=== PATIENT | female | born 1955 | race Caucasian/White ===

== ENCOUNTER → 2017-08-06 17:25 | Outpatient (CLI) | payer BC ==
[2009-04-01 09:49] VITALS: BMI 44.2
[~2017-08-06 17:25] MED LIST: ARMOUR THYROID120 MG PO; DITROPAN X5 MG/BOTTL PO; EFFEXOR XR150 MG PO; ELIQUIS2.5 MG PO; GABAPENTIN100 MG PO; GLUCOPHAGE500 MG; HYDROCHLOROTHIA25 MG PO; LISINOPRIL10 MG PO; MOBIC7.5 MG PO; PERCOCET 10/3251 TA1 PO; PROMETRIUM200 MG PO; PROTONIX40 MG PO; ULTRAM50 MG PO; VICTOZA0.6 MG/0.1; VITAMIN D31000 UNI2 PO; VIVELLE-DO1 PATCH.B1 TD; ZYRTEC10 MG PO
[2017-09-02 16:46] VITALS: BMI 42.1
== END | disposition home or self-care (01) ==
LOC: D.LABREF 17:25
DX: M17.11 Unilateral primary osteoarthritis, right knee (principal); Z11.8 Encounter for screening for other infectious and parasitic diseases

== ENCOUNTER 2017-09-02 10:45 | Inpatient (IN) | payer BC ==
[2017-08-29 12:03] LABS: BASOPHILS 0.4 % (0-2); EOSINOPHILS 5.3 % (0-7); HEMATOCRIT 36.1 % (36.0-48.0); IMMATURE GRANULOCYTES 0.2 % (0-5); LYMPHOCYTES 29.5 % (15-50); MCH 28.2 pg (26.0-34.0); MCHC 33.2 g/dL (31.0-37.0); MCV 84.9 fL (80.0-100.0); MEAN PLATELET VOLUME 9.7 fL (7.4-10.4); MONOCYTES 5.6 % (2-11); PLATELET COUNT 286 10x3/uL (130-400); RBC 4.25 10x6/uL (4.00-5.40); RDW 12.8 % (11.5-14.5); WBC 8.9 10x3/uL (4.8-10.8)
[2017-08-29 12:16] LABS: APPEARANCE CLEAR (CLEAR); BILIRUBIN NEGATIVE (NEGATIVE); COLOR YELLOW (YELLOW); GLUCOSE NEGATIVE (NEGATIVE); KETONE NEGATIVE (NEGATIVE); NITRITE NEGATIVE (NEGATIVE); SPECIFIC GRAVITY 1.015 (1.005-1.020); UROBILINOGEN NORMAL (NORMAL)
[2017-08-29 12:17] LABS: APTT 25.8 SECONDS (22.8-39.4); INR 0.93 (0.85-1.17)
[2017-08-29 12:18] LABS: RED CELLS - URINE NONE SEEN /hpf (0-5); WHITE CELLS - URINE 0-5 /hpf (0-5)
[2017-08-29 12:21] LABS: BACTERIA MODERATE /hpf (NONE SEEN)
[2017-08-29 12:29] LABS: PROTEIN NEGATIVE (NEGATIVE)
[2017-08-29 12:36] LABS: ANION GAP 14.5 mmol/L (8-16); CALCIUM 9.9 mg/dL (8.5-10.1); CARBON DIOXIDE 26.6 mmol/L (21.0-32.0); CREATININE - SERUM 1.3 mg/dL (0.6-1.3); POTASSIUM - SERUM 4.1 mmol/L (3.5-5.1)
[~2017-09-02] VITALS: Ht 157.5 cm; Wt 104.5 kg
--- NOTE | ~2017-09-02 | OP ---
PATIENT NAME: ORACIO NUÑEZ MEDICAL RECORD: [id number] :53 LOCATION:[facility]- ADMISSION DATE:09/02/17 SURGEON: SHAWN DOWELL MD DATE OF OPERATION: 09/02/2017 PREOPERATIVE DIAGNOSIS: Severe degenerative arthritis of the right knee. POSTOPERATIVE DIAGNOSIS: Severe degenerative arthritis of the right knee. PROCEDURE: Right total knee arthroplasty. SURGEON: Shawn Dowell MD ANESTHESIA: General. INTRAOPERATIVE COMPLICATIONS: None. SUMMARY OF PATHOLOGIC FINDINGS: The patient had severe degenerative arthritis of the right knee consistent with preoperative radiographs and diagnosis. I detailed multiple different avenues of nonoperative management. IMPLANTS USED: [employer] Triathlon total knee arthroplasty system, size 4 distal femur, size 4 tibial baseplate, size 9-mm x 31 X3 symmetric patella, 11-mm x 4 tibial bearing insert - X3. ESTIMATED BLOOD LOSS: 150 cc. OPERATIVE SUMMARY IN DETAIL: After obtaining the appropriate preoperative orthopaedic surgery consent as well as anesthetic consultation, evaluation, and clearance, the patient was brought to the operating room and placed on the operating table in the supine position. After general laryngeal mask airway was administered, tourniquet was placed about the proximal aspect of the right lower extremity. The right lower extremity was then prepped and draped in routine sterile fashion. The leg was elevated, exsanguinated, and tourniquet was inflated to 350 mmHg. Routine midline incision was taken down for paramedian arthrotomy. Paramedian arthrotomy was performed. Patella was everted. Distal femur was exposed. Soft tissue excision was done in usual fashion. Distal intramedullary guide hole was created for intramedullary guided distal femoral cuts. Having completed the distal femoral cuts, attention was turned to the proximal tibia with complete exposure of the proximal tibia. Intramedullary guide hole was created here likewise. This was utilized to cut the appropriate amount of the proximal tibia. Appropriate measurements were taken. Distal chamfer cuts were made on the distal femur. Trial implants corresponding to the above were put into place, taken through range of motion, was found to be stable in all planes. Final distal femoral and proximal tibial preparations were made for implantation. The patella was then cut for 9-mm resection, for 9 x 31 symmetric patella. The final preparations for the patella were made. At this point, the knee was irrigated with a pulsatile lavage syringe and all loose debris was removed. The knee was then flexed. Bone ends were dried. Proximal tibia was put into place and cemented. All excess cement was removed. Polyethylene tray was then put into place. This was followed by placement of the distal femoral component. Again, all excess cement was removed. The knee was placed in extension. The polyethylene patella was then likewise cemented onto the undersurface of the patella. Excess cement was removed here as well. After cement was allowed to harden, the knee was taken through range of motion OPERATIVE REPORT [id number] ORACIO NUÑEZ and found to be stable in all planes. Paramedian arthrotomy was closed with #2 Ethibond. This was followed by #1 Vicryl, 2-0 Vicryl, and skin chance. Sterile dressings were applied. Tourniquet was deflated. The patient was awakened and taken to recovery room in stable condition. All final needle and sponge counts were correct. TRANSINT:[id number] Voice Confirmation ID: [id number] DOCUMENT ID: [id number] MAGALYS BRIGHT, SHAWN FRANCOIS at 1547 CC: [id number] DICTATION DATE: 09/02/17 1352 FIRE BOSS: 09/02/17 1446 ADM IN [facility] [address] [place] [address]
[~2017-09-02 10:45] MED LIST changes: -ELIQUIS2.5 MG PO; -PERCOCET 10/3251 TA1 PO; -ZYRTEC10 MG PO
[2017-09-02] MEDS ORDERED: ZYRTEC10 MG PO (11:10)
[2017-09-02 11:12] VITALS: BP 159/80; BMI 44.4
[2017-09-02 16:46] VITALS: BP 109/63; Ht 157.5 cm; Wt 104.5 kg
[2017-09-02 20:37] VITALS: BP 125/63
[2017-09-03 00:41] VITALS: BP 145/71
[2017-09-03 04:10] VITALS: BP 116/61
[2017-09-03 06:34] LABS: HEMATOCRIT 28.6 % (36.0-48.0); HEMOGLOBIN 9.6 g/dL (12-16); MCH 28.2 pg (26.0-34.0); MCHC 33.6 g/dL (31.0-37.0); MCV 84.1 fL (80.0-100.0); MEAN PLATELET VOLUME 9.8 fL (7.4-10.4); RBC 3.4 10x6/uL (4.00-5.40); RDW 12.9 % (11.5-14.5); WBC 9.9 10x3/uL (4.8-10.8)
[2017-09-03 08:08] VITALS: BP 128/67
[2017-09-03 11:49] VITALS: BP 141/45
[2017-09-03 15:15] VITALS: BP 160/68
[2017-09-03 23:12] VITALS: BP 172/74
[2017-09-04 05:25] LABS: HEMATOCRIT 28.4 % (36.0-48.0); HEMOGLOBIN 9.4 g/dL (12-16); MCH 27.7 pg (26.0-34.0); MCHC 33.1 g/dL (31.0-37.0); MCV 83.8 fL (80.0-100.0); MEAN PLATELET VOLUME 9.6 fL (7.4-10.4); RBC 3.39 10x6/uL (4.00-5.40); RDW 12.8 % (11.5-14.5); WBC 9.2 10x3/uL (4.8-10.8)
[2017-09-04 07:46] VITALS: BP 157/61
[2017-09-04 11:38] VITALS: BP 170/57
[2017-09-04 15:43] VITALS: BP 173/75
[2017-09-04 20:00] VITALS: BP 142/70
[2017-09-05 04:00] VITALS: BP 159/80
[2017-09-05 08:42] VITALS: BP 133/81
[2017-09-05 11:09] VITALS: BP 144/66
[2017-09-05 15:54] VITALS: BP 125/62
[2017-09-05] MEDS ORDERED: PERCOCET 10/3251 TA1 PO (16:28)
[2017-09-05] MEDS ORDERED: ELIQUIS2.5 MG PO (16:29)
== END 2017-09-05 18:28 | disposition home or self-care (01) | DRG 470 ==
LOC: D.SDCHOLD 10:45 → D.MS 10:50 → D.SDCHOLD 10:50 → D.MS 16:17
PROVIDERS: Orthopaedic Surgery
PROC: 0SRC0J9 Replacement of Right Knee Joint with Synthetic Substitute, Cemented, Open Approach (ICD-10-PCS; principal; 2017-09-02 13:00)
DX: M17.11 Unilateral primary osteoarthritis, right knee (principal); I10 Essential (primary) hypertension; E11.9 Type 2 diabetes mellitus without complications; Z79.84 Long term (current) use of oral hypoglycemic drugs

== ENCOUNTER → 2017-11-01 22:21 | Outpatient (CLI) | payer BC ==
[2017-09-02 16:46] VITALS: BMI 42.1
[~2017-11-01 22:21] MED LIST changes: +ELIQUIS2.5 MG PO; +PERCOCET 10/3251 TA1 PO; +ZYRTEC10 MG PO
== END | disposition home or self-care (01) ==
LOC: D.MAMMO 13:00
DX: Z12.31 Encounter for screening mammogram for malignant neoplasm of breast (principal)

== ENCOUNTER → 2017-11-29 14:51 | Outpatient (CLI) | payer BC ==
[2017-09-02 16:46] VITALS: BMI 42.1
[~2017-11-29 14:51] MED LIST changes: +OXYCODONE-APAP1 TAB PO
== END | disposition home or self-care (01) ==
LOC: D.LABREF 14:51
DX: M17.12 Unilateral primary osteoarthritis, left knee (principal); Z11.8 Encounter for screening for other infectious and parasitic diseases

== ENCOUNTER 2017-12-19 09:06 | Inpatient (IN) | payer BC ==
[~2017-12-19] VITALS: Ht 157.5 cm; Wt 106.4 kg
--- NOTE | ~2017-12-19 | MORECARE ---
CASE MANAGEMENT DISCHARGE SUMMARY PATIENT: ORACIO NUÑEZ UNIT: [id number] ADM DATE: 12/23/17 AGE: 62 : 54 SEX: F ROOM/BED: D.2210 AUTHOR: HARLEYDOC PHYSICIAN: REFERRING PHYSICIAN: SHAWN DOWELL MD DATE OF SERVICE: 12/25/17 Discharge Plan Patient Name: ORACIO NUÑEZ Facility: [facility]:[place] : 1955 Planned Disposition: Home Anticipated Discharge Date: Discharge Date: Expected LOS: Initial Reviewer: [email or web address] Initial Review Date: 12/23/2017 Generated: 12/25/17 2:48 pm Comments DCP- Discharge Planning Updated by [email or web address]: Jocelin Ybarra on 12/25/17 12:[address] spoke with Avinash at family medicine and patient's appointment for PT will be SaturdayDec 30 at 10:30am will fax clinical to her office DCP- Discharge Planning Updated by [email or web address]: Jocelin Ybarra on 12/25/17 11:[address] Patient Name: ORACIO NUÑEZ Admission Status: Elective Accout number: [id number] Admission Date: 12-23-2017 : 1955 Admission Diagnosis: Attending: SHAWN DOWELL Current LOS: 2 Anticipated DC Date: Planned Disposition: Home Primary Insurance[place] [employer] [facility] Planning Comments: CM met with patient to assess discharge planning needs. Patient lives at home where she is independent. Her adult granddaughter lives with her and will be her transportation to and from PT & her driver trainer home. She has a bedside commode and a walker, but will need a CPM at discharge. I will call Denny at [place] [phone] for delivery. Patient [facility] with Estevan [facility]. CM will set up her first appointment. The patient has 1 step to enter in her home. Coat Agent: Jocelin Ybarra DCPIA - Discharge Planning Initial Assessment Updated by [email or web address]: Jocelin Ybarra on 12/25/17 12:00 pm * Is the patient Alert and Oriented? Yes * How many steps to enter\exit or inside your home? * PCP [facility] * Pharmacy [facility] * Preadmission Environment Home with Family * ADLs Independent * Equipment Bedside Commode Rolling Walker Walker * Other Equipment WILL NEED A CPM * List name and contact numbers for known caregivers / representatives who currently or will assist patient after discharge: ILYA NUÑEZ ([phone]) * Verbal permission to speak to the caregivers and representatives has been obtained from the patient. N/A * Community resources currently utilized None * Additional services required to return to the preadmission environment? Yes * Can the patient safely return to the preadmission environment? Yes * Has this patient been hospitalized within the prior 30 days at any hospital? No Last DP export: 12/25/17 11:07 Patient Name: ORACIO NUÑEZ Page 99992 at 1348 All edits/amendments must be made on the electronic document DICTATION DATE: 12/25/171347 SKULL CHOPPER: SIRENA 12/25/17 1348 RPT#: [id number] DC DATE: STATUS: ADM IN [facility] [address] [place] [address] END OF REPORT
--- NOTE | ~2017-12-19 | OP ---
PATIENT NAME: ORACIO NUÑEZ MEDICAL RECORD: [id number] :53 LOCATION:[facility] ADMISSION DATE:12/23/17 SURGEON: SHAWN DOWELL MD DATE OF OPERATION: 12/23/2017 PREOPERATIVE DIAGNOSIS: Degenerative arthritis of the left knee. POSTOPERATIVE DIAGNOSIS: Degenerative arthritis of the left knee. PROCEDURE: Left total knee arthroplasty. SURGEON: Shawn Dowell MD ANESTHESIA: General. INTRAOPERATIVE COMPLICATIONS: None. SUMMARY OF PATHOLOGIC FINDINGS: The patient had extensive tricompartmental osteoarthritis consistent with preoperative radiographs and diagnosis. IMPLANTS USED: [employer] Triathlon total knee arthroplasty press fit femur and tibia, size 4 femur, size 13 polyethylene insert, size 3 tibial baseplate, and a size 31 press fit patella. OPERATIVE SUMMARY IN DETAIL: After obtaining the appropriate preoperative orthopedic surgery consent as well as anesthetic consultation, evaluation, and clearance, the patient was brought to the operating room and placed on the operating table in the supine position. After general laryngeal mask was administered, tourniquet was placed about the proximal aspect of the left lower extremity. The left lower extremity was then prepped and draped in routine sterile fashion. The leg was elevated, exsanguinated, and the tourniquet was inflated to 350 mmHg. Midline incision was carried down for paramedian arthrotomy. Distal femur was exposed. Soft tissue excision was done in the usual fashion. An intramedullary guide hole was created for distal intramedullary guided femoral cut. This was then followed by complete exposure of the proximal tibia. Tibial intramedullary guided cut was made. Appropriate measurements were taken and the distal femoral chamfer cuts were made. Trials were then put in place corresponding to the above-mentioned implants, taken through range of motion, and found to be stable in all planes. Final distal femoral and proximal tibial preparation was then followed by resection of the arthritic patella. Final patellar components were made. After all trial components were taken through range of motion, these were removed. Copious irrigation was then followed by placement of the press-fit components with good fit, fill, and good stability in all planes to include flexion, extension, and mid flexion. Patellar tracking was excellent. The knee was gently irrigated with dilute Betadine solution followed by administration of a gram of vancomycin, a gram of tobramycin, and a gram of TXA into the knee. Paramedian arthrotomy was closed with #2 Ethibond followed by #1 Vicryl, 2-0 Vicryl, and skin chance. Sterile dressings were applied. The patient was awakened and taken to recovery room in stable condition. All final needle and sponge counts were correct. TRANSINT:[id number] Voice Confirmation ID: [id number] DOCUMENT ID: [id number] OPERATIVE REPORT [id number] ORACIO NUÑEZ MD, SHAWN FRANCOIS CC: [id number] DICTATION DATE: 12/24/171708 PLASTIC PANEL INSTALLER: 12/24/171855 DIS IN 12/26/17 [place] [id number] [place] [id number]
--- NOTE | ~2017-12-19 | MORECARE ---
CASE MANAGEMENT DISCHARGE SUMMARY PATIENT: ORACIO NUÑEZ UNIT: [id number] ADM DATE: 12/23/17 AGE: 62 : 53 SEX: F ROOM/BED: D.2210 AUTHOR: JEAN-PAUL SOUZA PHYSICIAN: REFERRING PHYSICIAN: SHAWN DOWELL MD DATE OF SERVICE: 12/25/17 Discharge Plan Patient Name: ORACIO NUÑEZ Facility: [facility]:[place] : 1955 Planned Disposition: Home Anticipated Discharge Date: Discharge Date: Expected LOS: Initial Reviewer: [email or web address] Initial Review Date: 12/23/2017 Generated: 12/25/17 12:59 pm Patient Name: ROACIO NUÑEZ Page 74074 at 1159 All edits/amendments must be made on the electronic document DICTATION DATE: 12/25/17 1159 WAREHOUSE GUARD: SIRENA 12/25/17 1159 RPT#: [id number] DC DATE: STATUS: ADM IN [facility] [address] [place] [address] END OF REPORT
--- NOTE | ~2017-12-19 | MORECARE ---
CASE MANAGEMENT DISCHARGE SUMMARY PATIENT: ORACIO NUÑEZ UNIT: [id number] ADM DATE: 12/23/17 AGE: 62 : 53 SEX: F ROOM/BED: D.2210 AUTHOR: HARLEYDOC PHYSICIAN: REFERRING PHYSICIAN: SHAWN DOWELL MD DATE OF SERVICE: 12/25/17 Discharge Plan Patient Name: ORACIO NUÑEZ Facility: [facility]:[place] : 1955 Planned Disposition: Home Anticipated Discharge Date: Discharge Date: Expected LOS: Initial Reviewer: [email or web address] Initial Review Date: 12/23/2017 Generated: 12/25/17 1:07 pm Comments DCP- Discharge Planning Updated by [email or web address]: Jocelin Ybarra on 12/25/17 11:[address] Patient Name: ORACIO NUÑEZ Admission Status: Elective Accout number: [id number] Admission Date: 12-23-2017 : 1955 Admission Diagnosis: Attending: SHAWN DOWELL Current LOS: 2 Anticipated DC Date: Planned Disposition: Home Primary Insurance: [employer] Discharge Planning Comments: CM met with patient to assess discharge planning needs. Patient lives at home where she is independent. Her adult granddaughter lives with her and will be her transportation to and from & her transit mixer driver home. She has a bedside commode and a walker, but will need a CPM at discharge. I will call Denny at [place] [phone] for delivery. Patient would like to [facility] with Estevan [facility]. CM will set up her first appointment. The patient has 1 step to enter in her home. Rigger Helper: Jocelin Ybarra DCPIA - Discharge Planning Initial Assessment Updated by [email or web address]: Jocelin Ybarra on 12/25/17 12:00 pm * Is the patient Alert and Oriented? Yes * How many steps to enter\exit or inside your home? * PCP [facility] * Pharmacy [facility] * Preadmission Environment Home with Family * ADLs Independent * Equipment Bedside Commode Rolling Walker Walker * Other Equipment WILL NEED A CPM * List name and contact numbers for known caregivers / representatives who currently or will assist patient after discharge: ILYA NUÑEZ ([phone]) * Verbal permission to speak to the caregivers and representatives has been obtained from the patient. N/A * Community resources currently utilized None * Additional services required to return to the preadmission environment? Yes * Can the patient safely return to the preadmission environment? Yes * Has this patient been hospitalized within the prior 30 days at any hospital? No Last DP export: 12/25/17 10:59 Patient Name: ORACIO NUÑEZ Page 78081 at 1207 All edits/amendments must be made on the electronic document DICTATION DATE: 12/25/171206 BUILDING ENGINEER: SIRENA 12/25/171206 RPT#: [id number] DC DATE: STATUS: ADM IN [facility] [address] [place] [address] END OF REPORT
--- NOTE | ~2017-12-19 | MORECARE ---
CASE MANAGEMENT DISCHARGE SUMMARY PATIENT: ORACIO NUÑEZ UNIT: [id number] ADM DATE: 12/23/17 AGE: 62 : 53 SEX: F ROOM/BED: D.2210 AUTHOR: HARLEYDOC PHYSICIAN: REFERRING PHYSICIAN: SHAWN DOWELL MD DATE OF SERVICE: 12/26/17 Discharge Plan Patient Name: ORACIO NUÑEZ Facility: [facility]:[place] : 1955 Planned Disposition: Home Anticipated Discharge Date: Discharge Date: Expected LOS: Initial Reviewer: [email or web address] Initial Review Date: 12/23/2017 Generated: 12/26/17 10:52 am Comments DCP- Discharge Planning Updated by [email or web address]: Jocelin Ybarra on 12/26/17 8:[address] Patient Name: ORACIO NUÑEZ Encounter No: [id number] : 1955 Primary Insurance: [employer] [facility] Anticipated DC Date: Planned Disposition: Home External Planned Provider: : DCP follow-up note: Patient and family in agreement with discharge plan. CPM will be delivered to the home, I spoke with Josefina at [facility]. No changes to plan. Case management will follow and assist as needed. Jocelin Ybarra DCP- Discharge Planning Updated by [email or web address]: Jocelin Ybarra on 12/25/17 12:[address] spoke with Avinash at family medicine and patient's appointment for PT will be SaturdayDec 30 at 10:30am will fax clinical to her office DCP- Discharge Planning Updated by [email or web address]: Jocelin Ybarra on 12/25/17 11:[address] Patient Name: ORACIO NUÑEZ Admission Status: Elective Accout number: [id number] Admission Date: 12-23-2017 : 1955 Admission Diagnosis: Attending: SHAWN DOWELL Current LOS: 2 Anticipated DC Date: Planned Disposition: Home Primary Insurance: [employer] [facility] Discharge Planning Comments: CM met with patient to assess discharge planning needs. Patient lives at home where she is independent. Her adult granddaughter lives with her and will be her transportation to and from PT & her lifter/driver home. She has a bedside commode and a walker, but will need a CPM at discharge. I will call Denny at [place] [phone] for delivery. Patient would like to do physical therapy at [facility] with Estevan Gomez. CM will set up her first appointment. The patient has 1 step to enter in her home. Data Warehouse Architect: Jocelin Ybarra DCPIA - Discharge Planning Initial Assessment Updated by [email or web address]: Jocelin Ybarra on 12/25/17 12:00 pm * Is the patient Alert and Oriented? Yes * How many steps to enter\exit or inside your home? * PCP [facility] * Pharmacy [facility] * Preadmission Environment Home with Family * ADLs Independent * Equipment Bedside Commode Rolling Walker Walker * Other Equipment WILL NEED A CPM * List name and contact numbers for known caregivers / representatives who currently or will assist patient after discharge: ILYA OJEDANER ([phone]) * Verbal permission to speak to the caregivers and representatives has been obtained from the patient. N/A * Community resources currently utilized None * Additional services required to return to the preadmission environment? Yes * Can the patient safely return to the preadmission environment? Yes * Has this patient been hospitalized within the prior 30 days at any hospital? No Last DP export: 12/25/17 12:48 Patient Name: ORACIO NUÑEZ Page 09065 at 0952 All edits/amendments must be made on the electronic document DICTATION DATE: 12/26/17951 POWER DIGGER OPERATOR: SIRENA 12/26/17951 RPT#: [id number] DC DATE: STATUS: ADM IN [facility] [address] [place] [address] END OF REPORT
[~2017-12-19 09:06] MED LIST changes: -OXYCODONE-APAP1 TAB PO
[2017-12-19 10:49] LABS: BASOPHILS 0.2 % (0-2); EOSINOPHILS 4.6 % (0-7); HEMATOCRIT 36.7 % (36.0-48.0); HEMOGLOBIN 12.3 g/dL (12-16); IMMATURE GRANULOCYTES 0.1 % (0-5); LYMPHOCYTES 27.3 % (15-50); MCH 27.8 pg (26.0-34.0); MCHC 33.5 g/dL (31.0-37.0); MEAN PLATELET VOLUME 9.5 fL (7.4-10.4); MONOCYTES 4.3 % (2-11); NEUTROPHILS 63.5 % (40-80); RBC 4.42 10x6/uL (4.00-5.40); RDW 13.5 % (11.5-14.5); WBC 8.6 10x3/uL (4.8-10.8)
[2017-12-19 10:55] LABS: APPEARANCE CLEAR (CLEAR); BILIRUBIN NEGATIVE (NEGATIVE); COLOR YELLOW (YELLOW); GLUCOSE NEGATIVE (NEGATIVE); KETONE NEGATIVE (NEGATIVE); NITRITE NEGATIVE (NEGATIVE); PROTEIN NEGATIVE (NEGATIVE); UROBILINOGEN NORMAL (NORMAL)
[2017-12-19 10:57] LABS: ANION GAP 14.4 mmol/L (8-16); CALCIUM 8.9 mg/dL (8.5-10.1); CARBON DIOXIDE 27.2 mmol/L (21.0-32.0); CREATININE - SERUM 0.9 mg/dL (0.6-1.3); POTASSIUM - SERUM 4.6 mmol/L (3.5-5.1)
[2017-12-19 11:01] LABS: APTT 24.8 SECONDS (22.8-39.4); INR 0.92 (0.85-1.17); PLATELET COUNT 322 10x3/uL (130-400)
[2017-12-23 12:30] VITALS: BP 138/67; BMI 43.1
[2017-12-23 16:55] VITALS: BP 106/50; Ht 157.5 cm; Wt 106.4 kg
[2017-12-23 21:47] VITALS: BP 138/71
[2017-12-24 05:43] VITALS: BP 126/64
[2017-12-24 08:30] VITALS: BP 120/68
[2017-12-24 10:51] LABS: HEMATOCRIT 32.3 % (36.0-48.0); HEMOGLOBIN 10.4 g/dL (12-16); MCH 27.4 pg (26.0-34.0); MCHC 32.2 g/dL (31.0-37.0); MEAN PLATELET VOLUME 9.5 fL (7.4-10.4); RBC 3.8 10x6/uL (4.00-5.40); RDW 14.1 % (11.5-14.5); WBC 9.5 10x3/uL (4.8-10.8)
[2017-12-24 15:45] VITALS: BP 182/85
[2017-12-24 20:49] VITALS: BP 171/70
[2017-12-25 00:35] VITALS: BP 168/74
[2017-12-25 04:42] VITALS: BP 174/80
[2017-12-25 05:56] LABS: HEMATOCRIT 30.4 % (36.0-48.0); HEMOGLOBIN 9.9 g/dL (12-16); MCH 27.3 pg (26.0-34.0); MCHC 32.6 g/dL (31.0-37.0); MCV 83.7 fL (80.0-100.0); MEAN PLATELET VOLUME 9.8 fL (7.4-10.4); RBC 3.63 10x6/uL (4.00-5.40); WBC 11.4 10x3/uL (4.8-10.8)
[2017-12-25 08:33] VITALS: BP 159/86
[2017-12-25 12:45] VITALS: BP 198/85
[2017-12-25 22:16] VITALS: BP 167/75
[2017-12-26 04:58] VITALS: BP 161/80
[2017-12-26 05:58] LABS: HEMATOCRIT 29.2 % (36.0-48.0); HEMOGLOBIN 9.7 g/dL (12-16); MCH 27.6 pg (26.0-34.0); MCHC 33.2 g/dL (31.0-37.0); MCV 83.2 fL (80.0-100.0); RBC 3.51 10x6/uL (4.00-5.40); RDW 13.9 % (11.5-14.5); WBC 9.7 10x3/uL (4.8-10.8)
[2017-12-26] MEDS ORDERED: ELIQUIS2.5 MG PO (07:41)
[2017-12-26] MEDS ORDERED: OXYCODONE-APAP1 TAB PO (07:41)
[2017-12-26 11:00] VITALS: BP 158/73
== END 2017-12-26 12:00 | disposition home or self-care (01) | DRG 470 ==
LOC: D.SDCHOLD 09:06 → D.MS 12-23 10:30 → D.SDCHOLD 12-23 11:00 → D.MS 12-23 16:31
PROVIDERS: Orthopaedic Surgery
PROC: 0SRD0JA Replacement of Left Knee Joint with Synthetic Substitute, Uncemented, Open Approach (ICD-10-PCS; principal; 2017-12-23 12:30)
DX: M17.12 Unilateral primary osteoarthritis, left knee (principal); E11.9 Type 2 diabetes mellitus without complications; I10 Essential (primary) hypertension